=== PATIENT | female | born 1950 | race Caucasian/White ===

== ENCOUNTER 2025-01-07 16:10 | Emergency (ER) | payer MEDICARE, BC ==
[~2025-01-07] VITALS: Ht 149.9 cm; Wt 66.2 kg
[2025-01-07 16:21] VITALS: BP 148/76; TEMP 98.3; O2SAT 98
== END 2025-01-07 16:49 | disposition left against medical advice (07) ==
LOC: ER 16:18
DX: H53.8 Other visual disturbances (principal); Z53.21 Procedure and treatment not carried out due to patient leaving prior to being seen by health care provider